=== PATIENT | male | born 1980 | race Caucasian/White ===

== ENCOUNTER 2017-10-24 23:12 | Emergency (ER) | payer OTHER ==
[2017-10-24 23:48] LABS: #Basophils 0.2 thou/uL (0.0-0.2); #Eosinphils 0.2 thou/uL (0.0-0.7); #Lymphocytes 5.5 thou/uL (1.20-3.40); #Neutrophils 8.2 thou/uL (1.40-6.50); %Basophils 1.4 % (0.0-1.0); %Eosinophils 1.1 % (0.0-10.0); %Lymphocytes 36.5 % (21.0-51.0); %Monocytes 6.7 % (0.0-10.0); %Neutrophils 54.3 % (42.0-75.0); Hemoglobin 16.8 g/dL (14.0-18.0); Mean Corpuscular HGB CONC 35.8 g/dL (32.0-36.0); Mean Corpuscular Hemoglobin 34.1 pg (27.0-31.0); Mean Corpuscular Volume 95.1 fL (78.0-98.0); Mean Platelet Volume 6.5 fL (7.4-10.4); Platelet Count 251 thou/uL (130-400); RBC Distribution Width 12.7 % (11.5-14.5); Red Blood Cell (RBC) Count 4.92 mill/uL (4.70-6.10)
[2017-10-25 00:04] LABS: ALT (SGPT) 192 U/L (8-55); AST (SGOT) 88 U/L (5-34); Albumin 4.8 g/dL (3.5-5.0); Alkaline Phosphatase 128 U/L (40-150); Anion Gap 15 mmol/L (10-20); BUN (Urea Nitrogen) 6 mg/dL (8.9-20.6); Bilirubin, Total 0.3 mg/dL (0.2-1.2); Calc. Creatinine Clearance 0 mL/min (70-130); Calcium 9.9 mg/dL (7.8-10.44); Carbon Dioxide 22 mmol/L (22-29); Chloride 107 mmol/L (98-107); Estimated GFR-MDRD Greater than 90; Globulin 3.3 g/dL (2.4-3.5); Glucose 115 mg/dL (70-105); Potassium 3.6 mmol/L (3.5-5.1); Protein, Total 8.1 g/dL (6.0-8.3); Sodium 140 mmol/L (136-145)
[2017-10-25 00:05] LABS: Acetaminophen Less than 6.0 mcg/mL (10.0-30.0); Alcohol 368 mg/dL (Less than 10); CK (CPK) 115 U/L (30-200); Salicylate Less than 8.0 mg/dL (15.0-30.0)
--- NOTE | 2017-10-25 00:05 | RAD ---
PORTABLE AP CHEST X-RAY 10/24/17 HISTORY: Altered mental status. Patient found sleeping in grass. COMPARISON: None available. FINDINGS: The right lateral costophrenic angle is excluded from view. Cardiac silhouette and pulmonary vasculat ure are magnified by projection. The lungs are otherwise clear. There is a metallic density (BB) over lying the medial left lung base which may represent either overlying artifact or possibly a metallic foreign body. Osseous structures are intact. IMPRESSION: 1. Metallic density overlying the medial left lung base which may represent a tiny metallic fore ign body versus overlying artifact. 2. No acute cardiopulmonary process. POS: [facility]
[2017-10-25 00:16] LABS: CKMB 1.6 ng/mL (0-6.6); Troponin I Less than 0.010 ng/mL (< 0.028)
[2017-10-25 05:16] LABS: Bilirubin Negative (Negative); Blood, Urine Negative (Negative); Clarity CLEAR (Clear); Glucose, Urine (Dipstick) Negative (Negative); Leukocyte Negative (Negative); Nitrite Negative (Negative); Protein, Urine (Dipstick) Negative (Neg-Trace); Specific Gravity, Urine 1.002 (1.002-1.036); Urobilinogen 0.2 mg/dL (0.2-1.0); pH, Urine 5.5 (5.0-9.0)
[2017-10-25] MEDS ORDERED: Haloperidol Lactate 5 MG/ML VIAL ONE (05:18)
[2017-10-25 05:30] LABS: Amphetamine Not Detected (NotDetected); Barbiturates Screen Not Detected (NotDetected); Benzodiazepine Screen Not Detected (NotDetected); Cocaine Metabolite Screen Not Detected (NotDetected); Medtox Control Line Valid? VALID (VALID); Medtox Reader # READER 1; Methadone Not Detected (NotDetected); Methamphetamine Not Detected (NotDetected); Opiate Screen Not Detected (NotDetected); Oxycodone Screen Not Detected (NotDetected); Phencyclidine (PCP) Not Detected (NotDetected); THC/Cannabinoid Screen Not Detected (NotDetected); Tricyclic Screen Not Detected (NotDetected)
--- NOTE | 2017-10-25 07:17 | CT ---
NONCONTRAST CT HEAD: Date: 10/24/17 HISTORY: Altered mental status. COMPARISON: None available. FINDINGS: There is no evidence of a hemorrhage, acute infarction, mass effect, or midline shift. Ventricular sy stem is normal in size, shape, and position. Mucus retention cysts are seen in each maxillary antrum. Mastoid air cells are clear. Calvarial struc tures are intact. IMPRESSION: No acute intracranial abnormality is demonstrated. POS: [facility]
== END 2017-10-25 06:29 | disposition home or self-care (01) ==
LOC: ERS 23:12
DX: F10.129 Alcohol abuse with intoxication, unspecified (principal); Y90.8 Blood alcohol level of 240 mg/100 ml or more
CPT/HCPCS: 36415; 70450; 71045; 80053; 80306; 80307; 81003; 82550; 82553; 84484; 85025; 93005; 96360; J1630